=== PATIENT | female | born 1945 | race Caucasian/White ===

== ENCOUNTER 2018-08-30 09:48 | Emergency (ER) | payer SELFPAY ==
[~2018-08-30] VITALS: Ht 162.6 cm; Wt 63.5 kg
[2018-08-30 09:52] VITALS: Ht 162.6 cm; Wt 63.5 kg
[2018-08-30 10:23] VITALS: BP 88/58
[2018-08-30 10:27] LABS: CALCIUM 8.5 mg/dL (8.5-10.1); CARBON DIOXIDE 16.5 mmol/L (21-32); CHLORIDE SERUM 108 mmol/L (98-107); GLUCOSE SERUM 299 mg/dL (74-106); POTASSIUM SERUM 3.2 mmol/L (3.5-5.1); SODIUM SERUM 143 mmol/L (136-145)
[2018-08-30 10:32] LABS: ALKALINE PHOSPHATASE 110 U/L (46-116); ALT/SGPT 24 U/L (14-59); AST/SGOT 38 U/L (15-37); BILIRUBIN TOTAL 0.1 mg/dL (0.20-1.00); TOTAL PROTEIN, SERUM 6.3 g/dL (6.4-8.2)
[2018-08-30 10:34] LABS: ALBUMIN 2.6 g/dL (3.4-5.0)
[2018-08-30 10:42] LABS: BASOPHIL % 0.5 % (0-2); PLATELET COUNT 338 x10^3mcL (130-400)
[2018-08-30 10:45] LABS: RED CELL DISTRIBUTION WIDTH 15.2 % (11.5-14.5)
== END 2018-08-30 10:35 | disposition short-term general hospital (02) ==
LOC: ED 09:48
PROVIDERS: Emergency Medicine
DX: I21.19 ST elevation (STEMI) myocardial infarction involving other coronary artery of inferior wall (principal); R10.9 Unspecified abdominal pain; M54.5 Low back pain
CPT/HCPCS: 82962; J2270; J3010; J3490; J7030

== ENCOUNTER 2018-09-07 19:25 | Inpatient (IN) | payer SELFPAY ==
[~2018-09-07] VITALS: Ht 147.3 cm; Wt 64.9 kg
[2018-09-07 19:29] VITALS: Ht 147.3 cm; Wt 64.9 kg
[2018-09-07 20:57] LABS: BASOPHIL % 0.2 % (0-2)
[2018-09-07 20:59] LABS: UA SPECIFIC GRAVITY <=1.005 (1.005-1.035); microscopic required? YES; urine erythrocyte TRACE (NEGATIVE)
[2018-09-07 20:59] LABS: PLATELET COUNT 440 x10^3mcL (130-400); RED CELL DISTRIBUTION WIDTH 15.4 % (11.5-14.5)
[2018-09-07 21:13] LABS: FREE T4 1.04 ng/dL (0.76-1.46); FREE THYROXINE INDEX 2.4 ug/dL (1.4-4.5); T4(THYROXINE) 6.6 ug/dL (4.7-13.3)
[2018-09-07 21:23] LABS: ALKALINE PHOSPHATASE 106 U/L (46-116); ALT/SGPT 40 U/L (14-59); AST/SGOT 35 U/L (15-37); BILIRUBIN TOTAL 0.53 mg/dL (0.20-1.00); CALCIUM 7.5 mg/dL (8.5-10.1); CARBON DIOXIDE 20.7 mmol/L (21-32); CHLORIDE SERUM 99 mmol/L (98-107); CREATININE SERUM 1.6 mg/dL (0.6-1.0); HDL CHOLESTEROL 50 mg/dL (40-60); LIPASE 436 IU/L (73-393); POTASSIUM SERUM 4.4 mmol/L (3.5-5.1); SODIUM SERUM 130 mmol/L (136-145); TOTAL PROTEIN, SERUM 6.7 g/dL (6.4-8.2); TRIGLYCERIDES 77 mg/dL (<150)
[2018-09-07 21:24] LABS: ALBUMIN 2.5 g/dL (3.4-5.0); CHOLESTEROL 128 mg/dL (<200); CHOLESTEROL/HDL RATIO 2.6
[2018-09-07 21:25] LABS: GLUCOSE SERUM 30 mg/dL (74-106)
[2018-09-07 21:26] LABS: T3 TOTAL 0.64 ng/mL
[2018-09-07] MEDS ORDERED: GOOD SENSE ASPI81 M3 (22:21)
[2018-09-07] MEDS ORDERED: ATORVASTATIN CA10 M1 (22:21)
[2018-09-07] MEDS ORDERED: GLIPIZIDE2.5 M1 (22:21)
[2018-09-07 23:01] LABS: MAGNESIUM 1.6 mg/dL (1.8-2.4); PHOSPHOROUS 3.1 mg/dL (2.5-4.9)
[2018-09-07 23:14] VITALS: BP 109/69
[2018-09-08 05:49] VITALS: BP 105/71
[2018-09-08 06:59] LABS: BASOPHIL % 0.3 % (0-2); PLATELET COUNT 396 x10^3mcL (130-400)
[2018-09-08 07:00] LABS: RED CELL DISTRIBUTION WIDTH 15.6 % (11.5-14.5)
[2018-09-08 07:06] LABS: CALCIUM 7.5 mg/dL (8.5-10.1); CARBON DIOXIDE 21.7 mmol/L (21-32); CHLORIDE SERUM 106 mmol/L (98-107); CREATININE SERUM 1.5 mg/dL (0.6-1.0); LIPASE 418 IU/L (73-393); MAGNESIUM 1.9 mg/dL (1.8-2.4); PHOSPHOROUS 3.3 mg/dL (2.5-4.9); POTASSIUM SERUM 4.9 mmol/L (3.5-5.1); SODIUM SERUM 136 mmol/L (136-145)
[2018-09-08 07:46] LABS: GLUCOSE SERUM 40 mg/dL (74-106)
[2018-09-08 08:21] VITALS: BP 102/66
[2018-09-08 12:44] VITALS: BP 104/67
[2018-09-08] MEDS ORDERED: LIPITOR40 MG PO (13:57)
[2018-09-08] MEDS ORDERED: PLAVIX75 M1 PO (13:57)
[2018-09-08] MEDS ORDERED: ALDACTONE25 MG PO (14:01)
[2018-09-08] MEDS ORDERED: TOPROL XL50 MG PO (14:02)
[2018-09-08 17:14] VITALS: BP 106/68
[2018-09-08 20:47] VITALS: BP 96/56
[2018-09-09] VITALS (9 sets, daily range): BP systolic 87–112; BP diastolic 57–70
[2018-09-09 07:09] LABS: CALCIUM 7.6 mg/dL (8.5-10.1); CARBON DIOXIDE 19.3 mmol/L (21-32); CHLORIDE SERUM 107 mmol/L (98-107); CREATININE SERUM 1.9 mg/dL (0.6-1.0); GLUCOSE SERUM 129 mg/dL (74-106); MAGNESIUM 1.8 mg/dL (1.8-2.4); PHOSPHOROUS 3.1 mg/dL (2.5-4.9); POTASSIUM SERUM 4.4 mmol/L (3.5-5.1); SODIUM SERUM 138 mmol/L (136-145)
[2018-09-09 07:44] LABS: BASOPHIL % 0.8 % (0-2)
[2018-09-09 07:46] LABS: PLATELET COUNT 424 x10^3mcL (130-400); RED CELL DISTRIBUTION WIDTH 15.7 % (11.5-14.5)
[2018-09-09 07:48] LABS: rbc morphology (normal/abnorm) ABNORMAL (NORMAL)
[2018-09-09 21:54] LABS: BASOPHIL % 0.7 % (0-2)
[2018-09-09 21:55] LABS: PLATELET COUNT 401 x10^3mcL (130-400); RED CELL DISTRIBUTION WIDTH 15.1 % (11.5-14.5)
[2018-09-10 05:34] VITALS: BP 117/72
[2018-09-10 06:12] LABS: BASOPHIL % 0.5 % (0-2)
[2018-09-10 06:56] LABS: PLATELET COUNT 443 x10^3mcL (130-400); RED CELL DISTRIBUTION WIDTH 15.4 % (11.5-14.5)
[2018-09-10 07:00] LABS: CALCIUM 8.2 mg/dL (8.5-10.1); CARBON DIOXIDE 21.2 mmol/L (21-32); CHLORIDE SERUM 108 mmol/L (98-107); CREATININE SERUM 2.1 mg/dL (0.6-1.0); GLUCOSE SERUM 103 mg/dL (74-106); MAGNESIUM 1.8 mg/dL (1.8-2.4); PHOSPHOROUS 3.8 mg/dL (2.5-4.9); SODIUM SERUM 140 mmol/L (136-145)
[2018-09-10 07:45] VITALS: BP 112/71
[2018-09-10 13:18] VITALS: BP 96/54
[2018-09-10 17:19] VITALS: BP 108/63
[2018-09-10 20:48] VITALS: BP 110/70
[2018-09-11 06:14] VITALS: BP 109/65
[2018-09-11 06:32] LABS: BASOPHIL % 0.8 % (0-2)
[2018-09-11 06:44] LABS: PLATELET COUNT 502 x10^3mcL (130-400); RED CELL DISTRIBUTION WIDTH 14.9 % (11.5-14.5)
[2018-09-11 06:53] LABS: CARBON DIOXIDE 21.2 mmol/L (21-32); CHLORIDE SERUM 107 mmol/L (98-107); CREATININE SERUM 1.9 mg/dL (0.6-1.0); GLUCOSE SERUM 97 mg/dL (74-106); MAGNESIUM 1.6 mg/dL (1.8-2.4); PHOSPHOROUS 2.9 mg/dL (2.5-4.9); POTASSIUM SERUM 4.7 mmol/L (3.5-5.1); SODIUM SERUM 138 mmol/L (136-145)
[2018-09-11 07:28] VITALS: BP 111/72
[2018-09-11 12:00] VITALS: BP 111/45
[2018-09-11 16:23] VITALS: BP 118/71
[2018-09-11 20:46] VITALS: BP 117/75
[2018-09-12 05:42] VITALS: BP 128/76
[2018-09-12 06:17] LABS: BASOPHIL % 0.9 % (0-2)
[2018-09-12 06:43] LABS: CALCIUM 8.5 mg/dL (8.5-10.1); CARBON DIOXIDE 18.5 mmol/L (21-32); CHLORIDE SERUM 107 mmol/L (98-107); CREATININE SERUM 1.8 mg/dL (0.6-1.0); GLUCOSE SERUM 102 mg/dL (74-106); MAGNESIUM 1.5 mg/dL (1.8-2.4); PHOSPHOROUS 3.4 mg/dL (2.5-4.9); POTASSIUM SERUM 4.7 mmol/L (3.5-5.1); SODIUM SERUM 139 mmol/L (136-145)
[2018-09-12 06:55] LABS: RED CELL DISTRIBUTION WIDTH 15.5 % (11.5-14.5)
[2018-09-12 06:56] LABS: PLATELET COUNT 532 x10^3mcL (130-400)
[2018-09-12 09:34] VITALS: BP 112/65
[2018-09-12 12:59] VITALS: BP 115/76
[2018-09-12] MEDS ORDERED: LEVAQUIN750 MG PO (17:34)
[2018-09-12 17:39] VITALS: BP 125/73
[2018-09-12 18:41] VITALS: BP 125/73
== END 2018-09-12 20:05 | disposition home or self-care (01) | DRG 871 ==
LOC: ED 19:25 → DU 21:44
PROVIDERS: General Practice; Specialist
PROC: 30233N1 Transfusion of Nonautologous Red Blood Cells into Peripheral Vein, Percutaneous Approach (ICD-10-PCS; principal; 2018-09-09)
DX: A41.9 Sepsis, unspecified organism (principal); E43 Unspecified severe protein-calorie malnutrition; N17.0 Acute kidney failure with tubular necrosis; G93.41 Metabolic encephalopathy; J69.0 Pneumonitis due to inhalation of food and vomit; I21.3 ST elevation (STEMI) myocardial infarction of unspecified site; E87.1 Hypo-osmolality and hyponatremia; I50.20 Unspecified systolic (congestive) heart failure; E11.649 Type 2 diabetes mellitus with hypoglycemia without coma; E78.00 Pure hypercholesterolemia, unspecified; I25.10 Atherosclerotic heart disease of native coronary artery without angina pectoris; E11.65 Type 2 diabetes mellitus with hyperglycemia; I25.5 Ischemic cardiomyopathy; D63.8 Anemia in other chronic diseases classified elsewhere; N18.9 Chronic kidney disease, unspecified; E11.22 Type 2 diabetes mellitus with diabetic chronic kidney disease; E83.42 Hypomagnesemia; E83.51 Hypocalcemia; G90.8 Other disorders of autonomic nervous system; I25.2 Old myocardial infarction; Z95.5 Presence of coronary angioplasty implant and graft; Z68.23 Body mass index [BMI] 23.0-23.9, adult
CPT/HCPCS: 82962; 83880; 84439; 87804; 97110-GP; 97116-GP; 97530-GP; J2543; J3490; J7030; J7040; J7050; P9016; Q0092; Q0163